=== PATIENT | female | born 1935 | race Caucasian/White ===

== ENCOUNTER → 2020-01-22 | Outpatient (CLI) | payer OTHER ==
[~2020-01-22] MED LIST: ASPIR 8181 M1 PO; FLOVENT HFA 4444 MCG INH; MACROBID 100 M100 MG PO; OXYBUTYNIN 5 MG5 M1 PO; PRILOSEC OTC20 MG PO; SYSTANE BALANCE10 ML OPHTHALMIC; SYSTANE COMPLET10 ML OPHTHALMIC; VITAMIN D325 MC2 PO; ZETIA10 MG PO
== END ==
LOC: LAB 11:18
PROVIDERS: ATTEND Student in an Organized Health Care Education/Training Program
DX: Z01.812 Encounter for preprocedural laboratory examination (principal); Z11.59 Encounter for screening for other viral diseases

== ENCOUNTER → 2020-01-27 | Outpatient (CLI) | payer OTHER ==
[~2020-01-27] VITALS: Ht 167.6 cm; Wt 67.6 kg
--- NOTE | ~2020-01-27 | P ---
[facility] [place] [address] PROCEDURE REPORT Name: TRACI HELMS Room #: REG [facility].#: [id number] Admission: 01/27/20 Attend Phys: Joseph Barahona Discharge: Date of : 35 Report #: [id number] THIS REPORT FOR: cc: HERMILO BROKOS Physician not on staff Joseph Metzger MD ~ CC: Joseph Brooks Physician staff DATE OF SERVICE: 01/27/2020 PROCEDURE PERFORMED: Upper endoscopy with biopsies. HISTORY OF PRESENT ILLNESS: The patient is an 84-year-old female with intermittent heartburn symptoms began taking Prilosec last week, has had improvement in her symptoms. She has rare history of intermittent nausea and vomiting. No previous history of upper endoscopy. She takes an aspirin on a regular basis and has been held for the last week. Plan is for EGD and colonoscopy today. DESCRIPTION OF PROCEDURE: The risks and benefits of the procedure were explained to the patient, those risks including but not limited to bleeding, perforation and the risk of sedation. She understood these risks and gave informed consent. Sedation was given using propofol per anesthesia. Next, using a standard Olympus upper endoscope, the scope was placed in the patient's mouth and advanced under direct vision through the esophagus, stomach and into the second portion of the duodenum. The upper and mid esophagus was normal in appearance. In the distal esophagus, a possible short segment of Barreto's was noted. Biopsies were obtained. No evidence of erosive esophagitis. Upon entering the stomach, a small hiatal hernia was noted. Overall, the gastric mucosa was normal in the fundus and body. There was a mild gastritis noted in the gastric antrum. Biopsies were obtained. The pylorus was normal and patent. The duodenal bulb, first and second portion were all normal. The scope was then withdrawn and the procedure terminated. The patient tolerated the procedure well. RECOMMENDATIONS: 1. Await biopsy results. 2. Would consider long-term daily PPI therapy to control her symptoms. If the patient has Barreto's, would also recommend a long-term PPI therapy. 3. We will proceed with colonoscopy next today. [facility] [address] [place] [address] PROCEDURE REPORT Name: SCOOTERTRACI Laly Room #: REG [facility] Tamie.#: [id number] Admission: 01/27/20 Attend Phys: Joseph Barahona Discharge: Date of : 35 Report #: [id number] Thank you for allowing me to participate in her care. By: 1007 1209 Joseph Metzger MD /nt
--- NOTE | ~2020-01-27 | P ---
[facility] [place] [address] PROCEDURE REPORT Name: TRACI HELMS Room #: REG [facility].#: [id number] Admission: 01/27/20 Attend Phys: Joseph Barahona Discharge: Date of : 35 Report #: [id number] THIS REPORT FOR: cc: HERMILO BROOKS Physician not on staff Joseph Metzger MD ~ CC: Joseph Brooks Physician staff DATE OF SERVICE: 01/27/2020 PROCEDURE PERFORMED: Colonoscopy with polypectomies. HISTORY OF PRESENT ILLNESS: The patient is an 84-year-old female with a history of colon polyps 5 years ago, here for a 5-year followup. She denies any symptoms. She has a family history of colon cancer. DESCRIPTION OF PROCEDURE: The risks and benefits of the procedure were explained to the patient, those risks including but not limited to bleeding, perforation and the risk of sedation. She understood these risks and gave informed consent. Sedation was given using propofol per anesthesia. Next, a digital rectal exam was initially performed, which was normal. Next, using a standard Olympus colonoscope, the scope was placed in the patient's anus and advanced under direct vision to the cecum. The overall prep was excellent. The cecum and ileocecal valve were normal in appearance. In the ascending colon, a 4-mm sessile polyp was noted. This was removed with cold forceps. The transverse and descending colon were normal. A few scattered diverticula were noted in the sigmoid colon. Also noted in the sigmoid colon was a 5 mm sessile polyp removed by snare cautery. The rectal mucosa was normal. On retroflexion, small nonbleeding internal hemorrhoids were noted. The scope was then withdrawn and the procedure terminated. The patient tolerated the procedure well. IMPRESSION: 1. Two small colonic polyps. 2. Sigmoid diverticulosis. 3. Small internal hemorrhoids. 4. Otherwise, normal colonoscopy. RECOMMENDATIONS: Await biopsy results. [address] [address] PROCEDURE REPORT Name: TRACI HELMS Room #: REG Jody Sims#: [id number] Admission: 01/27/20 Attend Phys: Joseph Barahona Discharge: Date of : 35 Report #: [id number] Thank you for allowing me to participate in her care. By: 1038 1210 Joseph Metzger MD /nt
--- NOTE | 2020-01-29 18:06 | PATH ---
[facility] [place] [address] PATHOLOGY RPT PROCEDURE Name: CHERIE HELMS Room #: REG [facility] Tamie.#: [id number] Admission: 01/27/20 Date of : 35 Discharge: Report #: [id number] Path Case #: [id number] [facility] Accession Number: [id number] . 01 Material submitted: . PART A: stomach - BIOPSY OF GASTRITIS R/O H. PYLORI PART B: esophagus - BIOPSY OF DISTAL ESOPHAGUS R/O SCHREIBER'S. Modifiers: distal PART C: colon - POLYP AT ASCENDING COLON. Modifiers: ascending PART D: colon - POLYP AT SIGMOID. Modifiers: sigmoid . 01 Clinical history: . Reflux, history of polyps. . 02 Diagnosis: A. Gastric mucosa, gastritis, R/O H. pylori, endoscopic biopsy: - Mild reactive gastropathy. - Negative for intestinal metaplasia or atrophy. - Negative for Helicobacter pylori (properly controlled immunohistochemical stain performed). . B. Gastroesophageal mucosa, distal esophagus, endoscopic biopsy: - Specialized columnar (gastric cardia-type mucosa) with intestinal metaplasia, consistent with Schreiber's metaplasia. - Moderate chronic inflammation. - Squamous mucosa with mild esophagitis. - Negative for dysplasia. . C. Polyp, ascending colon, endoscopic biopsy: - Tubular adenoma. - Negative for high-grade dysplasia. . D. Polyp, at sigmoid, endoscopic biopsy: - Tubular adenoma. - Negative for high-grade dysplasia. (IUV:yumiko; 01/29/2020) S 01/29/2020 1349 Local . 02 Electronically signed: . Tenisha Mobley MD, Pathologist NPI- [id number] . 01 Gross description: . A. Received in formalin labeled "Cherie Helms BX of gastritis rule out H. pylori" is a 0.7 x 0.5 x 0.1 cm aggregate of yusuf-brown soft tissue fragments. The specimen is submitted entirely in A1. . [address] [address] PATHOLOGY RPT PROCEDURE Name: CHERIE HELMS Room #: REG [facility].#: [id number] Admission: 01/27/20 Date of : 35 Discharge: Report #: [id number] Path Case #: [id number] B. Received in formalin labeled "Cherie Helms BX of distal esophagus rule out Schreiber's" is a 0.5 x 0.5 x 0.1 cm aggregate of yusuf-brown soft tissue fragments. The specimen is submitted entirely in B1. . C. Received in formalin labeled "Cherie Helms, polyp at ascending colon" is a 0.3 x 0.3 x 0.2 fragment of yusuf-brown soft tissue. The specimen is submitted entirely in C1. . D. Received in formalin labeled "Cherie Helms, polyp at sigmoid" is a 0.5 x 0.5 x 0.1 cm aggregate of yusuf-brown soft tissue fragments. The specimen is submitted entirely in D1. ([facility]; 01/28/2020) [facility] 01/28/2020 1509 Local . 02 Pathologist provided ICD-10: K31.9, K22.70, D12.2, D12.5 . 02 CPT . 666405, 592941, 722479, 336406, U17525 Specimen Comment: A courtesy copy of this report has been sent to [phone] Specimen Comment: [phone] Specimen Comment: Report sent to / DR HERRERA Performed at: [address], [place], [place] [id number] MD Alessio Brown MD Phone: [phone] Performed at: [address] [id number] MD Tenisha Mobley MD Phone: [phone]
== END | disposition home or self-care (01) ==
LOC: GI 08:37
PROVIDERS: ATTEND Specialist
DX: Z12.11 Encounter for screening for malignant neoplasm of colon (principal); K57.30 Diverticulosis of large intestine without perforation or abscess without bleeding; K64.8 Other hemorrhoids; K29.50 Unspecified chronic gastritis without bleeding; K21.0 Gastro-esophageal reflux disease with esophagitis; D12.5 Benign neoplasm of sigmoid colon; D12.2 Benign neoplasm of ascending colon; K63.89 Other specified diseases of intestine; K31.89 Other diseases of stomach and duodenum; Z79.899 Other long term (current) drug therapy; Z88.2 Allergy status to sulfonamides; Z88.8 Allergy status to other drugs, medicaments and biological substances; Z98.890 Other specified postprocedural states
CPT/HCPCS: 62110; 62900

== ENCOUNTER → 2021-06-14 | Outpatient (CLI) | payer OTHER ==
--- NOTE | 2021-06-14 10:36 | NUR ---
DR IBRAHIM AND DR FRANCE NOTIFIED OF POSITIVE COVID TEST.
== END | disposition home or self-care (01) ==
LOC: GI 09:27
PROVIDERS: ATTEND Specialist
DX: K21.9 Gastro-esophageal reflux disease without esophagitis (principal); Z53.9 Procedure and treatment not carried out, unspecified reason; Z20.822 Contact with and (suspected) exposure to COVID-19; Z79.899 Other long term (current) drug therapy

== ENCOUNTER → 2021-07-19 | Outpatient (CLI) | payer OTHER ==
[~2021-07-19] VITALS: Ht 167.6 cm; Wt 67.6 kg
[~2021-07-19] MED LIST changes: +CALCIUM CITRAT1 EAC7 PO; +ESTRADIOL CREAM VAG; +GEMTESA75 MG PO; +OMEPRAZOLE10 MG PO
--- NOTE | 2021-07-21 14:11 | P ---
[facility] [place] [address] PROCEDURE REPORT Name: TRACI HELMS Room #: REG [facility].#: [id number] Admission: 07/19/21 Attend Phys: Joseph Barahona Discharge: Date of : 35 Report #: [id number] THIS REPORT FOR: cc: HERMILO HERRERA - Family physician unknown Joseph Metzger MD ~ cc: DATE OF SERVICE: 07/19/2021 PROCEDURE PERFORMED: Upper endoscopy with biopsies. HISTORY OF PRESENT ILLNESS: The patient is an 86-year-old female who underwent an upper endoscopy by myself on 01/27/2020 for heartburn symptoms at that time. Biopsies were obtained that were positive for Barreto's esophagus, no dysplasia. Biopsies were also negative for H. pylori of the stomach. She is here for routine followup. She is taking daily PPI therapy. She denies any dysphagia or odynophagia. Denies any heartburn symptoms. DESCRIPTION OF PROCEDURE: The risks and benefits of the procedure were explained to the patient, those risks including but not limited to bleeding, perforation and the risk of sedation. She understood these risks and gave informed consent. Sedation was given using propofol per anesthesia. Next, using a standard Olympus upper endoscope, the scope was placed in the patient's mouth and advanced under direct vision through the esophagus, stomach and into the second portion of the duodenum. The larynx was normal in appearance. The upper and mid esophagus was normal. In the distal esophagus, 2 small pink mucosal tongues consistent with Barreto's was again noted. No evidence of esophagitis. Biopsies were obtained. Upon entering the stomach, a small hiatal hernia was once again noted. Overall, the gastric mucosa was normal. The pylorus was normal and patent. The duodenal bulb, first and second portion were all normal. The scope was then withdrawn and the procedure terminated. The patient tolerated the procedure well. IMPRESSION: 1. Short segment Barreto's esophagus. 2. Small hiatal hernia. 3. Otherwise, normal upper endoscopy. RECOMMENDATIONS: 1. Await biopsy results. 2. Continue daily PPI therapy. [facility] [address] [place] [address] PROCEDURE REPORT Name: TRACI HELMS Room #: REG [facility] Tamie.#: [id number] Admission: 07/19/21 Attend Phys: Joseph Barahona Discharge: Date of : 35 Report #: [id number] Thank you for allowing me to participate in her care. <ELECTRONICALLY SIGNED> By: Joseph Metzger MD 07/21/21 1411 1037 1913 Joseph Metzger MD /nt
--- NOTE | 2021-07-21 15:07 | PATH ---
[facility] [address] [place] [address] PATHOLOGY RPT PROCEDURE Name: CHERIE HELMS Room #: REG [facility].#: [id number] Admission: 07/19/21 Date of : 35 Discharge: Report #: [id number] Path Case #: [id number] [facility] Accession Number: [id number] . 01 Material submitted: . esophagus - DISTAL ESOPHAGUS BIOPSY- HISTORY OF SCHREIBER'S. Modifiers: distal . 01 Clinical history: . ESOPHAGOGASTRODUODENOSCOPY SCHREIBER'S ESOPHAGUS . 02 Diagnosis: Distal esophagus, biopsy: - Predominantly gastric cardia/antrum type mucosa with mild chronic inactive inflammation. - H. pylori-like organisms are not identified. - Please see comment. [facility] 07/21/2021 1108 Local . 02 Comment: Rare intestinal metaplasia is identified; however, most fragments represent gastric-type mucosa. No dysplasia or malignancy identified. (EDISON/db; 07/21/2021) . 02 Electronically signed: . Liya Travis MD, Pathologist NPI- [id number] . 01 Gross description: . The specimen is received in formalin, labeled "Cherie Helms, distal esophagus BX". Received are 3 segments of pale yusuf tissue ranging in size from 0.2 cm to 0.6 cm in maximum dimensions. The specimen is submitted entirely in cassette A1.([facility]; 07/20/2021) [facility] 07/20/2021 1133 Local . 02 Pathologist provided ICD-10: K20.90 . 02 CPT . 659629 Specimen Comment: A courtesy copy of this report has been sent to [phone] Specimen Comment: [id number] Specimen Comment: Report sent to / DR HERRERA Performed at: [address] [address] PATHOLOGY RPT PROCEDURE Name: CHERIE HELMS [id number] Admission: 07/19/21 Date of : 35 Discharge: Report #: [id number] Path Case #: [id number] [address] [id number] MD Juan Sinclair MD Phone: [phone] Performed at: [address] [id number] MD Liya Travis MD Phone: [phone]
== END | disposition home or self-care (01) ==
LOC: GI 10:18
PROVIDERS: ATTEND Specialist
DX: K22.70 Barrett's esophagus without dysplasia (principal); K29.50 Unspecified chronic gastritis without bleeding; K44.9 Diaphragmatic hernia without obstruction or gangrene; J45.909 Unspecified asthma, uncomplicated; E78.5 Hyperlipidemia, unspecified; K21.9 Gastro-esophageal reflux disease without esophagitis; Z96.641 Presence of right artificial hip joint; Z98.890 Other specified postprocedural states; Z79.899 Other long term (current) drug therapy; Z20.822 Contact with and (suspected) exposure to COVID-19; Z98.41 Cataract extraction status, right eye; Z98.42 Cataract extraction status, left eye; Z88.2 Allergy status to sulfonamides
CPT/HCPCS: 62110; 62900